=== PATIENT | male | born 1960 | race African-American/Black ===

== ENCOUNTER 2016-12-21 10:50 | Emergency (ER) | payer OTHER ==
[2016-12-21 10:53] VITALS: BP 140/72; PULSE 80; TEMP 98.2; BMI 20.3
--- NOTE | 2016-12-21 11:04 | PDOC ---
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 Was stripping the floors, slipped and fell onto buttock hitting the sacrum and the left hip. Pain 10/10, sharp. Unable to stand erect. Denies hitting head, no loc no further injury. PMH: Left Knee arthritis. MEDS:Advil, for pain ALLERGIES: None REVIEW OF SYSTEMS: GENERAL/CONSTITUTIONAL: Awake alert and oriented HEAD, EYES, EARS, NOSE AND THROAT: No change in vision. No facial edema, no bruising. NO active bleeding. Nares intact. RESPIRATORY: No cough, wheezing, or hemoptysis. CARDIAC: Denies chest pain, no shortness of breathe. MUSCULOSKELETAL: No spinal point tenderness, Good ROM to all four extremities. NO CVA tenderness. no lateral neck pain. GI/: Denies abdominal pain, no nausea or vomiting, no bloody stool, no Hematuria. SKIN : No erythema or bruising noted. No abrasion or lacerations. NEUROLOGIC: No loss of consciousness, no numbness or tingling. PHYSICAL EXAM: GENERAL: Awake and alert and oriented x3. EYES: The pupils are equal, round, and reactive to light, with clear, conjunctiva. Good extraocular movement. No nystagmus NOSE: No nasal trauma . Midface stable MOUTH: Teeth intact. EARS: The ear canals and tympanic membranes are normal without trauma. No drainage. NECK: No Lower cervical C-spine tenderness, no pain with chin to chest. CHEST: The lungs are clear without crackles, or wheezes. No subcutaneous emphysema. No crepitus. HEART: Heart is regular rhythm, with normal S1 and S2, no murmurs. ABDOMEN: The abdomen is soft and nontender with normal bowel sounds. There is no guarding or rebound. MUSCULOSKELETAL: sacral spinal point tenderness. No bruising or erythema. Pelvis stable. RECTAL: Patient refused. EXTREMITIES: Extremities are normal. No visible traumatic injury. NEUROLOGICAL:Mental status: The patient is oriented x3. No Generalized headache , Romberg - Cranial nerves: Cranial nerves II through XII are intact Motor: The upper extremities are 5 over 5 in all muscle groups. The lower extremities are 5 over 5 in all muscle groups. Sensation: Sensation is intact to light touch throughout. Cerebellar: Tzacbg-[id number]-[id number] is normal in both upper extremities. Heel-knee- ramesh is normal in both lower extremities. Reflexes: 2+ and symmetric in the upper and lower extremities. Gait: Normal. Heel and toe walking are normal. Tandem gait is normal. SKIN: Without edema, erythema or bruising. No abrasions or lacerations. Past History - Past Medical History Allergies/Adverse Reactions: Allergies Allergy/AdvReac Type Severity Reaction Status Date / Time No Known Allergies Allergy Verified 12/21/16 10:53 Home Medications: Ambulatory Orders Ibuprofen [Motrin -] 600 mg PO QID #28 tablet 12/21/16 Oxycodone HCl/Acetaminophen [Percocet 5-325 mg Tablet] 1 tab PO Q4H #12 tablet MDD 6 12/21/16 Other medical history: NONE - Psycho/Social/Smoking Cessation Hx Anxiety: No Suicidal Ideation: No Smoking History: Never smoked Hx Alcohol Use: Yes (SOCIAL) Drug/Substance Use Hx: No Substance Use Type: None *Physical Exam - Vital Signs Last Vital Signs Temp Pulse Resp BP Pulse Ox 98.2 F 80 20 140/72 99 12/21/16 10:50 12/21/16 10:50 12/21/16 10:50 12/21/16 10:50 12/21/16 10:50 Medical Decision Making - Medical Decision Making 12/21/16 11:04 A/P : Accidental fall, lower back pain. Sacral pain. Will perform xray of lumbar sacral, left hip and pelvis. Toradol 60 mg IM x 1. 12/21/16 15:49 X-ray demonstrated no acute bony abnormality. There is chronic degenerative discogenic disease at L3-4-5 S1. Patient states relief of pain after Toradol and will see patient home on Motrin and Percocet as needed for pain, follow-up with orthopedics, contusion, sacral area. I discussed the physical exam findings, ancillary test results and final diagnoses with the patient. I answered all of the patient's questions. The patient was satisfied with the care received and felt comfortable with the discharge plan and treatment plan. The patient will call to arrange follow-up and will return to the Emergency Department with any new, persistent or worsening symptoms. *DC/Admit/Observation/Transfer Diagnosis at time of Disposition: Accidental fall Qualifiers: Encounter type: initial encounter Qualified Code(s): W19.XXXA - Unspecified fall, initial encounter Sacral contusion Qualifiers: Encounter type: initial encounter Qualified Code(s): S30.0XXA - Contusion of lower back and pelvis, initial encounter - Discharge Dispostion Disposition: HOME Admit: No - Prescriptions Prescriptions: Ibuprofen [Motrin -] 600 mg PO QID #28 tablet Oxycodone HCl/Acetaminophen [Percocet 5-325 mg Tablet] 1 tab PO Q4H #12 tablet MDD 6 - Referrals Referrals: Jory Dean MD [Primary Care Provider] - - Patient Instructions Additional Instructions: Ice to lower back If pain persists follow up with ortho. If any increased pain, numbness, tingling or other concerns return to the ER. - Post Discharge Activity Work/School Note: Back to Work
[2016-12-21] MEDS ORDERED: KETOROLAC TROMETHAMINE 60 MG/2 ML VIAL IM ONE (11:24)
[2016-12-21] MEDS ORDERED: KETOROLAC TROMETHAMINE 60 MG/2 ML VIAL ONE (11:25)
== END 2016-12-21 12:51 | disposition home or self-care (01) ==
LOC: JERFT 10:50
PROC: 3E0233Z Introduction of Anti-inflammatory into Muscle, Percutaneous Approach (ICD-10-PCS; principal; 2016-12-21)
DX: S30.0XXA Contusion of lower back and pelvis, initial encounter (principal); W18.39XA Other fall on same level, initial encounter; Y93.E5 Activity, floor mopping and cleaning; Y92.9 Unspecified place or not applicable; Y99.0 Civilian activity done for income or pay
CPT/HCPCS: 72100-TC; 73523-TC; 99281-25